=== PATIENT | female | born 1975 | race Caucasian/White ===

== ENCOUNTER 2020-03-09 12:47 | Emergency (ER) | payer SELFPAY ==
[2020-03-09 15:51] LABS: URINE BILIRUBIN - DIPSTICK NEGATIVE (NEGATIVE); URINE BLOOD DIPSTICK NEGATIVE (NEGATIVE); URINE COLOR YELLOW; URINE GLUCOSE - DIPSTICK NEGATIVE (NEGATIVE); URINE KETONE NEGATIVE (NEGATIVE); URINE LEUK ESTERASE NEGATIVE (NEGATIVE); URINE NITRITE - DIPSTICK NEGATIVE (Negative); URINE PH 7.5 (4.5-8.0); URINE PROTEIN - DIPSTICK NEGATIVE (NEG-TRACE); URINE UROBILINOGEN - DIPSTICK 0.2 E.U./dL (0.2)
[2020-03-09 15:57] LABS: URINE AMORPH SEDIMENT MANY hpf (NONE-FEW); URINE RBC 0-2 RBC/hpf (0-5); URINE SQUAMOUS EPITHELIAL CELL FEW EPI/hpf (0-FEW); URINE WBC 0-2 WBC/hpf (0-5)
[2020-03-09] MEDS ORDERED: KEFLEX500 M1 PO (16:04)
[2020-03-09] MEDS ORDERED: PYRIDIUM200 MG PO (16:04)
[2020-03-09] MEDS ORDERED: NO HOME MEDS (16:41)
[2020-03-09 16:51] VITALS: BP 123/81
== END 2020-03-09 16:51 | disposition home or self-care (01) | DRG 690 ==
LOC: ED 12:47
DX: N39.0 Urinary tract infection, site not specified (principal); Z87.440 Personal history of urinary (tract) infections

== ENCOUNTER 2021-04-23 10:59 | Emergency (ER) | payer MEDICAID ==
[~2021-04-23] VITALS: Ht 157.5 cm; Wt 61.2 kg
[~2021-04-23 10:59] MED LIST: KEFLEX500 M1 PO; NO HOME MEDS; PYRIDIUM200 MG PO
[2021-04-23] MEDS ORDERED: AMOX/K CLAV875 M1 PO (13:34)
[2021-04-23 14:14] VITALS: BP 112/69
== END 2021-04-23 14:27 | disposition home or self-care (01) ==
LOC: ED 10:59
DX: J06.9 Acute upper respiratory infection, unspecified (principal); F17.290 Nicotine dependence, other tobacco product, uncomplicated; Z20.822 Contact with and (suspected) exposure to COVID-19